=== PATIENT | male | born 1950 | race Caucasian/White ===

== ENCOUNTER 2019-04-21 15:08 | Outpatient (CLI) | payer MEDICARE, OTHER ==
--- NOTE | 2019-04-21 16:37 | Diagnostic Imaging Report ---
Indication: Knee pain and swelling Technique: 3 views of the right knee Comparison: None Findings: There is a small distal femoral exostosis noted. No acute fractures. No dislocations. The joint spaces are preserved. There is a small superior pole patellar traction spur. There is a suprapatellar effusion Impression: Positive for joint effusion. No definite acute bony trauma Other findings as noted
== END 2019-04-23 17:08 | disposition home or self-care (01) ==
LOC: RAD 15:08
DX: M25.561 Pain in right knee (principal); M25.461 Effusion, right knee